=== PATIENT | female | born 1975 | race Caucasian/White ===

== ENCOUNTER 2020-06-28 13:10 | Emergency (ER) | payer OTHER ==
[~2020-06-28 13:10] MED LIST: KEFLEX500 MG PO; TRAMADOL HCL50 MG PO
== END 2020-06-28 13:30 | disposition left against medical advice (07) ==
LOC: ER1 13:10
DX: R07.9 Chest pain, unspecified (principal); Z53.21 Procedure and treatment not carried out due to patient leaving prior to being seen by health care provider
CPT/HCPCS: 93005